=== PATIENT | female | born 1965 ===

== ENCOUNTER 2024-07-04 03:34 | Outpatient (CLI) | payer BC, SELFPAY ==
[2024-07-04 09:51] LABS: Hemoglobin A1C 5.7 % (<5.7)
[2024-07-04 10:47] LABS: ALT 43 U/L (14-59); AST 20 U/L (15-37); Albumin 4.1 g/dL (3.4-5.0); Alkaline Phosphatase 65 U/L (46-116); Anion Gap 9.3 mmol/L (3-11); BUN 10 mg/dL (7-18); Bilirubin, Total 0.5 mg/dL (0.2-1.0); CO2 28.7 mmol/L (21.0-32.0); CREATININE 0.7 mg/dL (0.55-1.02); Calcium 9.3 mg/dL (8.5-10.1); Calculated LDL 189 mg/dL (<100); Chloride 105 mmol/L (98-107); Cholesterol 299 mg/dL (<200); Estimated GFR 98.34 (mL/min/1.73m2); Glucose 104 mg/dL (74-106); HDL Cholesterol 86 mg/dL (>or=50); Potassium 4.1 mmol/L (3.5-5.1); Sodium 143 mmol/L (136-145); TSH 1.45 uIU/mL (0.36-3.74); Total Protein 7.5 g/dL (6.4-8.2); Triglyceride 121 mg/dL (<150); Vitamin D 25 Total 37 ng/mL (30-100)
[2024-07-04 11:04] LABS: FREE T4 1.08 ng/dL (0.76-1.46)
[2024-07-04 17:56] LABS: T3,Free 4.2 pg/mL (2.8-5.3)
[2024-07-04 18:53] LABS: Parathyroid Hormone,Intact 37.4 pg/mL (19.0-88.0)
[2024-07-05 11:04] LABS: Insulin 5.3 uIU/mL (<29.0)
== END 2024-07-04 03:35 | disposition home or self-care (01) ==
PROVIDERS: Visit Provider Naturopath
DX: Z00.00 Encounter for general adult medical examination without abnormal findings (principal); Z90.89 Acquired absence of other organs
CPT/HCPCS: 36415; 80053; 80061; 82306; 83036; 83525; 83970; 84439; 84443; 84481

== ENCOUNTER 2024-09-27 15:56 | Outpatient (CLI) | payer BC, SELFPAY ==
--- NOTE | 2024-09-27 16:15 | DI.RAD_ITS ---
Exam(s) XR FOOT RT COMPLETE EXAM: XR FOOT RT COMPLETE CLINICAL HISTORY: M79.671 Pain in RT foot. TECHNIQUE: 2D digital imaging was performed. Three views. COMPARISON: No exams were available for comparison FINDINGS: BONES: No acute fracture is present. No bony destructive lesion is seen. Tiny heel spurs. JOINTS: No dislocation present. Minimal degenerative changes of the 1st MTP joint. SOFT TISSUE: Normal. IMPRESSION: No acute abnormality. DATA REPOSITORY: RADIATION DOSE DELIVERED:
--- NOTE | 2024-09-27 16:36 | DI.VRAD_ITS ---
PROCEDURE INFORMATION: Exam: XR Right Foot Exam date and time: 09/27/2024 4:11 PM Age: 59 years old Clinical indication: Pain in RT foot; Additional info: Sudden pain, no injury. TECHNIQUE: Imaging protocol: Radiologic exam of the right foot. Views: 3 or more views. COMPARISON: No relevant prior studies available. FINDINGS: Bones/joints: There is no evidence of acute fracture. No joint dislocation. There is an 8 mm ossicle noted at the plantar aspect of the 1st interphalangeal joint. Minimal degenerative changes noted with mild subchondral sclerosis. Soft tissues: No evidence of significant subcutaneous soft tissue abnormality. IMPRESSION: 1. No acute fracture or dislocation. 2. Small ossicle at the 1st interphalangeal joint as described. Correlate with clinical findings for any associated symptoms in this region. Dictated and Authenticated by: Radha Sheffield MD. Orderin Riya Caputo MD
== END 2024-09-27 16:16 ==
LOC: DI 15:59
PROVIDERS: Visit Provider Physician Assistant Medical
DX: M79.671 Pain in right foot (principal)
CPT/HCPCS: 73630

== ENCOUNTER 2024-10-08 16:06 | Outpatient (CLI) | payer BC, SELFPAY ==
--- NOTE | 2024-10-08 | DI.RAD_ITS ---
Exam(s) XR FOOT RT COMPLETE EXAM: XR FOOT RT COMPLETE CLINICAL HISTORY: M79.671 Right foot pain, possible stress fracture. TECHNIQUE: 2D digital imaging was performed. Three views. COMPARISON: CR,XR XR FOOT RT COMPLETE from 09/27/2024 FINDINGS: BONES: There is a nondisplaced fracture at the distal metadiaphysis of the 3rd metatarsal. No bony destructive lesion is seen. Postsurgical changes at the medial aspect of the 1st metatarsal head. JOINTS: No dislocation present. SOFT TISSUE: Normal. IMPRESSION: Nondisplaced fracture of the distal 3rd metatarsal. DATA REPOSITORY: RADIATION DOSE DELIVERED:
== END 2024-10-08 16:26 ==
LOC: DI 16:09
PROVIDERS: Visit Provider Naturopath
DX: S92.331A Displaced fracture of third metatarsal bone, right foot, initial encounter for closed fracture (principal); X58.XXXA Exposure to other specified factors, initial encounter
CPT/HCPCS: 73630

== ENCOUNTER 2024-11-25 10:25 | Outpatient (CLI) | payer BC, SELFPAY ==
--- NOTE | 2024-11-25 13:28 | DI.RAD_ITS ---
Exam(s) XR FOOT RT COMPLETE EXAM: XR FOOT RT COMPLETE CLINICAL HISTORY: FU METATARSAL FX S92.334D. TECHNIQUE: 2D digital imaging was performed of the right foot. Three images were obtained. AP, oblique and lateral views were obtained. COMPARISON: CR,XR XR FOOT RT COMPLETE from 09/27/2024 CR XR FOOT RT COMPLETE from 10/08/2024 FINDINGS: BONES: There has been no change in alignment of the fracture involving the 3rd metatarsal. There has been significant callus formation about the fracture. No new fracture is seen. No bony destructive lesion is seen. JOINTS: No dislocation present. SOFT TISSUE: Normal. IMPRESSION: Stable alignment of the 3rd metatarsal fracture. Callus formation has developed about the fracture. DATA REPOSITORY: RADIATION DOSE DELIVERED:
== END 2024-11-25 10:45 ==
LOC: DI 10:25
PROVIDERS: Visit Provider Naturopath
DX: S92.334D Nondisplaced fracture of third metatarsal bone, right foot, subsequent encounter for fracture with routine healing (principal); X58.XXXD Exposure to other specified factors, subsequent encounter
CPT/HCPCS: 73630